=== PATIENT | female | born 1960 | race Hispanic/Latino ===

== ENCOUNTER 2017-05-01 09:24 | Emergency (ER) | payer MEDICARE, MEDICAID ==
[2017-05-01 09:24] VITALS: BMI 22.6
[2017-05-01 10:07] LABS: BASO % 0.3 % (0.0-2.0); EOS % 0.3 % (0.0-4.0); HEMATOCRIT 45.6 % (34.0-47.0); LYMPH # 1.1 K/uL (1.0-4.3); LYMPH % 14.7 % (20.0-40.0); MEAN CELL VOLUME 95.9 fL (81.0-99.0); MEAN CORPUSCULAR HEMOGLOBIN 31.7 pg (27.0-31.0); MEAN CORPUSCULAR HGB CONC 33.1 g/dL (33.0-37.0); MEAN PLATELET VOLUME 6.8 fL (7.2-11.7); MONO # 0.5 K/uL (0.0-0.8); MONO % 6.5 % (0.0-10.0); NRBC % 0.1 % (0.0-2.0); RED CELL DISTRIBUTION WIDTH 12.9 % (11.5-14.5); WHITE BLOOD COUNT 7.4 K/uL (4.8-10.8)
--- NOTE | 2017-05-01 10:07 | RAD ---
HISTORY: chest pain COMPARISON: None available. TECHNIQUE: Chest, one view. FINDINGS: LUNGS: No focal consolidation. Please note that chest x-ray has limited sensitivity for the detection of pulmonary masses. PLEURA: No significant pleural effusion identified. No definite pneumothorax . CARDIOVASCULAR: The cardiomediastinal silhouette appears within normal limits of size. OSSEOUS STRUCTURES: Metallic plate and screw fixation of the right proximal humerus with callus formation evident. Deformity of the left humeral head. VISUALIZED UPPER ABDOMEN: Unremarkable. OTHER FINDINGS: None. IMPRESSION: No focal consolidation, significant pleural effusion, or definite pneumothorax identified.
[2017-05-01 10:17] LABS: ALB/GLOB RATIO 1.6 (1.0-2.1); ALCOHOL SERUM 171 mg/dl (0-10); ALKALINE PHOSPHATASE 77 U/L (38-126); ALT/SGPT 39 U/L (9-52); AST/SGOT 32 U/L (14-36); BILIRUBIN,TOTAL 0.7 mg/dL (0.2-1.3); BLOOD UREA NITROGEN 11 mg/dL (7-17); CALCIUM 8.4 mg/dl (8.6-10.4); CARBON DIOXIDE 22 mmol/L (22-30); CHLORIDE 106 mmol/L (98-107); GFR AFRICAN-AMERICAN > 60; GLUCOSE,RANDOM 86 mg/dL (65-105); POTASSIUM 3.5 mmol/L (3.6-5.2); SODIUM 143 mmol/L (132-148); TOTAL PROTEIN 7.5 g/dL (6.3-8.3)
--- NOTE | 2017-05-01 10:30 | C.PDOC ---
History Of Present Illness 56 yr old female presents to the ER stating she feels confused for the past 1 day. Patient states she is homeless and lives in a fci and was recently discharged from "[facility]". Patient also reports she recently ran out of her Xanax and had alcohol yesterday. Otherwise, patient denies fever, chills, chest pain, SOB, nausea, vomiting, abdominal pain, diarrhea, weakness or numbness. Patient also denies SI or HI. Time Seen by Provider: 05/01/17 09:35 Chief Complaint (Nursing): Altered Mental Status History Per: Patient History/Exam Limitations: None Onset/Duration Of Symptoms: Days (1 day) Past Medical History Reviewed: Historical Data, Nursing Documentation, Vital Signs Vital Signs: Last Vital Signs Temp 98.0 F 05/01/17 13:12 Pulse 87 05/01/17 13:12 Resp 18 05/01/17 13:12 BP 133/83 05/01/17 13:12 Pulse Ox 99 05/01/17 13:33 - Medical History PMH: Arthritis, Bipolar Disorder, Depression, Gastritis, HTN, Post Traumatic Stress Disorder, Seizures Surgical History: Cholecystectomy Family History: States: No Known Family Hx - Social History Hx Alcohol Use: Yes (occasional) Hx Substance Use: No - Immunization History Hx Tetanus Toxoid Vaccination: Yes Hx Influenza Vaccination: Yes (2017) Hx Pneumococcal Vaccination: Yes Review Of Systems Except As Marked, All Systems Reviewed And Found Negative. Constitutional: Negative for: Fever, Chills Cardiovascular: Negative for: Chest Pain Respiratory: Negative for: Shortness of Breath Gastrointestinal: Negative for: Nausea, Vomiting, Abdominal Pain, Diarrhea Neurological: Positive for: Confusion. Negative for: Weakness, Numbness Psych: Negative for: Suicidal ideation Physical Exam - Physical Exam Appears: Non-toxic, No Acute Distress Skin: Warm, Dry, No Rash Head: Atraumatic, Normacephalic Cardiovascular: Rhythm Regular, No Murmur Respiratory: Normal Breath Sounds, No Rales, No Rhonchi, No Stridor, No Wheezing Gastrointestinal/Abdominal: Normal Exam, Soft, No Tenderness, No Guarding, No Rebound Extremity: Normal ROM, No Swelling Neurological/Psych: Oriented x3, Normal Speech, Normal Motor ED Course And Treatment - Laboratory Results Result Diagrams: 05/01/17 10:02 05/01/17 10:02 ECG: Interpreted By Me, Viewed By Me ECG Rhythm: Sinus Rhythm ECG Interpretation: Normal Interpretation Of ECG: Normal intervals. Normal axis. No ST/T wave changes. Rate From EC (BPM) O2 Sat by Pulse Oximetry: 99 (RA) Pulse Ox Interpretation: Normal - Other Rad CXR X-Ray: Viewed By Me, Read By Radiologist Interpretation: HISTORY: chest pain. COMPARISON: None available. TECHNIQUE: Chest, one view. FINDINGS: LUNGS: No focal consolidation. Please note that chest x-ray has limited sensitivity for the detection of pulmonary masses. PLEURA: No significant pleural effusion identified. No definite pneumothorax . CARDIOVASCULAR: The cardiomediastinal silhouette appears within normal limits of size. OSSEOUS STRUCTURES: Metallic plate and screw fixation of the right proximal humerus with callus formation evident. Deformity of the left humeral head. VISUALIZED UPPER ABDOMEN: Unremarkable. OTHER FINDINGS: None. IMPRESSION: No focal consolidation, significant pleural effusion, or definite pneumothorax identified. - CT Scan/US CT - Head Other Rad Studies (CT/US): Read By Radiologist, Radiology Report Reviewed CT/US Interpretation: PROCEDURE: CT HEAD WITHOUT CONTRAST. HISTORY: dizziness. COMPARISON: None available. TECHNIQUE: Axial computed tomography images were obtained through the head/brain without intravenous contrast. Radiation dose: Total exam DLP = 995.07 mGy-cm. This CT exam was performed using one or more of the following dose reduction techniques: Automated exposure control, adjustment of the mA and/or kV according to patient size, and/ or use of iterative reconstruction technique. FINDINGS: HEMORRHAGE: No intracranial hemorrhage. BRAIN: No mass effect or edema. Minimal atrophy. 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 No evidence of acute infarct. VENTRICLES: Unremarkable. No hydrocephalus. CALVARIUM: Unremarkable. PARANASAL SINUSES: Minimal chronic sinusitis at the level of the left frontoethmoidal recess. MASTOID AIR CELLS: Unremarkable as visualized. No inflammatory changes. OTHER FINDINGS: None. IMPRESSION: No intracranial mass , hemorrhage or evidence of acute infarct. Minimal chronic paranasal sinusitis. Medical Decision Making Medical Decision Making: PLAN: * CT - Head * CXR * EKG * CBC * CMP * Alcohol Serum * Drug Screen * Troponin * Urinalsysi * Pepcid IVP * Toradol IVP NOTE: * On re-evaluation, patient is awake and alert appropriate for age. * Patient to be discharged home. * Patient provided with information for shelters. Disposition Counseled Patient/Family Regarding: Studies Performed, Diagnosis, Need For Followup - Disposition Referrals: [facility] at [facility] [Outside] [facility] [Outside] Disposition: HOME/ ROUTINE Disposition Time: 13:32 Condition: STABLE Additional Instructions: follow up with medical clinic in 2 days call to make an appointment decrease alcohol use return to hospital if symptoms worsens or progress Instructions: Alcohol Intoxication (ED) Forms: [facility] ([place]), General Discharge Instructions - Clinical Impression Clinical Impression: Alcohol intoxication
[2017-05-01 10:40] LABS: RBC URINE 7 /hpf (0-3); URINE BILIRUBIN NEGATIVE (NEGATIVE); URINE BLOOD 1+ (NEGATIVE); URINE COLOR Yellow (YELLOW); URINE GLUCOSE (UA) NORMAL (Normal); URINE KETONE NEGATIVE (NEGATIVE); URINE LEUKOCYTE ESTERASE NEG Leu/uL (Negative); URINE PROTEIN NEGATIVE (NEGATIVE); URINE UROBILINOGEN NORMAL mg/dL (0.2-1.0); WBC URINE 2 /hpf (0-5)
--- NOTE | 2017-05-01 11:19 | CT ---
PROCEDURE: CT HEAD WITHOUT CONTRAST. HISTORY: dizziness COMPARISON: None available. TECHNIQUE: Axial computed tomography images were obtained through the head/brain without intravenous contrast. Radiation dose: Total exam DLP = 995.07 mGy-cm. This CT exam was performed using one or more of the following dose reduction techniques: Automated exposure control, adjustment of the mA and/or kV according to patient size, and/or use of iterative reconstruction technique. FINDINGS: HEMORRHAGE: No intracranial hemorrhage. BRAIN: No mass effect or edema. Minimal atrophy. 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 No evidence of acute infarct. VENTRICLES: Unremarkable. No hydrocephalus. CALVARIUM: Unremarkable. PARANASAL SINUSES: Minimal chronic sinusitis at the level of the left frontoethmoidal recess. MASTOID AIR CELLS: Unremarkable as visualized. No inflammatory changes. OTHER FINDINGS: None. IMPRESSION: No intracranial mass, hemorrhage or evidence of acute infarct. Minimal chronic paranasal sinusitis.
[2017-05-01 15:20] VITALS: BP 155/92; RESP 19; O2SAT 100
[2017-05-01 17:23] VITALS: PULSE 92; TEMP 98.3
--- NOTE | 2017-05-02 11:08 | CARD ---
APPROVED REPORT EKG Measurement Heart [id number] <Conclusion> Normal sinus rhythm Normal ECG
== END 2017-05-01 17:23 | disposition home or self-care (01) ==
LOC: C.ER 09:24
DX: F10.129 Alcohol abuse with intoxication, unspecified (principal); Y90.6 Blood alcohol level of 120-199 mg/100 ml; Z59.0 Homelessness; I10 Essential (primary) hypertension
CPT/HCPCS: 70450; 71010; 80053; 81001; 84484; 85025; 93005; 96374; 96375; 99285; G0480; J1885

== ENCOUNTER 2017-05-04 07:27 | Emergency (ER) | payer MEDICARE, MEDICAID ==
[2017-05-04 07:27] VITALS: BMI 22.6
--- NOTE | 2017-05-04 07:46 | C.PDOC ---
History Of Present Illness 56 y/o F presenting with complaint of weak, chest pain. Pt admits, chest pain intermittent for past few days. She reports that she lives in a halfway and has not been able to sleep. At present time, pt appears drowsy, falls asleep during the conversation. Unable to get full history on present illness, pt is not compliant at present time. FYI: ED records from previous visit review. Patient was recently admitted to hospital and evaluated by cardiology for chest pain. Patient had evaluation in ED 2 days ago for similar sx. head CT, blood work review form 05/01 and 05/03/17 and appears without acute abnormalities, pt was detected for benzo abuse. Time Seen by Provider: 05/04/17 07:42 Chief Complaint (Nursing): Dizziness/Lightheaded Past Medical History Vital Signs: Last Vital Signs Temp 97.7 F 05/04/17 13:44 Pulse 67 05/04/17 13:44 Resp 18 05/04/17 13:44 BP 133/92 H 05/04/17 13:44 Pulse Ox 97 05/04/17 14:00 - Medical History PMH: Arthritis, Bipolar Disorder, Depression, Gastritis, HTN, Post Traumatic Stress Disorder, Seizures Denies: Diabetes, Hepatitis, HIV, Chronic Kidney Disease, Sexually Transmitted Disease Surgical History: Cholecystectomy Family History: States: Unknown Family Hx - Social History Hx Alcohol Use: Yes (occasional) Hx Substance Use: No - Immunization History Hx Tetanus Toxoid Vaccination: Yes Hx Influenza Vaccination: Yes (2017) Hx Pneumococcal Vaccination: Yes Physical Exam - Physical Exam Appears: Well, Non-toxic, No Acute Distress Skin: Normal Color, Warm, Dry, No Rash Head: Atraumatic, Normacephalic Eye(s): bilateral: PERRL Nose: No Flaring, No Discharge Oral Mucosa: Moist Tongue: Normal Appearing Throat: No Drooling Neck: Trachea Midline, Supple Cardiovascular: Rhythm Regular, No JVD, Other ((-) carotid bruits B/L) Respiratory: No Decreased Breath Sounds, No Accessory Muscle Use, No Stridor, No Wheezing Gastrointestinal/Abdominal: Soft, No Tenderness, No Distention, No Guarding Back: No CVA Tenderness, No Vertebral Tenderness Extremity: Normal ROM, No Pedal Edema, No Calf Tenderness (B/L), No Deformity, No Swelling Neurological/Psych: Oriented x3, Normal Motor, Normal Sensation, Normal Reflexes ED Course And Treatment ECG: Interpreted By Me, Viewed By Me ECG Interpretation: No Changes From Prior (05/03/17) Interpretation Of ECG: ST@63/min, NAD, no acute T wave or ST-T changes. O2 Sat by Pulse Oximetry: 97 Pulse Ox Interpretation: Normal Progress Note: Pt was OBS in ED for 6 hours. On re-eval,Pt is AAO#3, not in any apparent distress. Pt was asked and denies CP, denies dizziness. Pt is complaining on mild headache Afebrile, hemodynamicaly stable. Non-toxic. Tolerate po well in ED. Head: AT/NC, Neck: Supple, (-) carotid bruits, (-) JVD. Lungs: CTA B/L, BS equal B/L. CVS: (+)S1S2, reg. Abd: benign, (-) guarding, (-) rebound. Neurologicaly intact. Blood work, CT head review from two previous visit to ED on 05/01/17 and 05/03/17 and appeared normal. Case discussed with ED attending , EKG review and appears similar to previous study. As per , no further evlauation or imaging recommend, discharge with outpt f/u recommend. results review with pt, pt started to ask for " observation admission, just need place to sleep for one night". Discussed with RN in [facility], offered shelters places. Pt is stable for discharge and outpt f/u now. Disposition Counseled Patient/Family Regarding: Diagnosis, Need For Followup - Disposition Referrals: [facility] at [facility] [Outside] Disposition: HOME/ ROUTINE Disposition Time: 13:40 Condition: STABLE Additional Instructions: Follow up with PMD and cardiology in 2-3 days for re-evaluation. return to ED if any worsening or new changes. Instructions: Benzodiazepine Overdose (ED) Forms: [facility] ([place]altese) - Clinical Impression Clinical Impression: Benzodiazepine abuse
[2017-05-04 13:45] VITALS: BP 133/92; PULSE 67; RESP 18; TEMP 97.7
[2017-05-04 13:50] VITALS: O2SAT 97
== END 2017-05-04 14:19 | disposition home or self-care (01) ==
LOC: C.ER 07:27
DX: F13.10 Sedative, hypnotic or anxiolytic abuse, uncomplicated (principal)